=== PATIENT | female | born 1950 | race Caucasian/White ===

== ENCOUNTER 2019-12-07 12:57 | Emergency (ER) | payer OTHER, SELFPAY ==
--- NOTE | 2019-12-07 12:54 | ED.FALL ---
HPI - Fall General Chief Complaint: Fall Stated Complaint: Fall Time Seen by Provider: 12/07/19 13:00 Source: patient and EMS Mode of arrival: EMS Limitations: no limitations History of Present Illness HPI Narrative: This is a 69-year-old female who comes emergency department with complaint of right knee pain. Patient was [place] the beach at [facility]. Patient caught her toe on a sticker log and fell forward onto her knee. Patient has pain in the knee itself she denies injury or pain elsewhere. She does have some abrasions on her fingers. She denies hitting her head she denies neck or back pain. She denies any chest pain or shortness of breath. She has developed nausea and vomiting after receiving narcotic pain medication but did not have a prior to, patient received Zofran sublingual, IV as well as Benadryl for nausea and vomiting. No other GI or urinary symptoms. No numbness or tingling in her extremities. Patient denies any medical issues, states she does not take any medications regularly. She does not take any anticoagulants. She is allergic to penicillins. Denies tobacco, alcohol or illicit. She lives majority of the time in [place] but has a summer home on [facility]. She is in the area unaccompanied. Related Data Previous Rx's Medication Instructions Recorded tramadol [Ultram] 50 mg PO Q6H PRN #20 tab 12/07/19 Allergies Allergy/AdvReac Type Severity Reaction Status Date / Time Penicillins Allergy Verified 12/07/19 13:02 Review of Systems Review of Systems ROS Unobtainable: All systems reviewed & are unremarkable except as noted in HPI and below Patient History Social History Smoking Status: Never smoker Smoking Status: Never smoker Substance Use Type: does not use Exam Narrative Exam Narrative: GEN: Patient appears in home moderate distress. HEAD: No evidence of trauma, no raccoon/Coulter sign. NECK: Nontender, painless range of motion, trachea midline Negative Nexus criteria, there is no mid line tenderness, distracting injury, altered mental status, neuro deficit, recent EtOH. EYES: PERRLA, EOMI ENT: External inspection normal, trachea is midline, nares are clear, no septal hematoma, no dental or oral injury, airway is normal and with normal occlusion, No bony tenderness RESP: Chest is nontender and has symmetric movement, no ecchymosis, breath sounds are normal no crackles, wheezes or rales CVS: Heart sounds are normal, no murmur noted, No JVD. ABG/GI: Nontender, soft, normal bowel sounds, no distention, no organomegaly, pelvic rock is negative NEURO: Oriented AOx3, neuro is grossly intact, sensation and motor is normal all 4 extremities moving, cranial nerves II through XII are intact, GCS is 15 PSYCH: Normal mood and affect SKIN: Patient has several small abrasions on the dorsum of her fingers that are superficial, warm and dry, no crepitus and without decubitus BACK: No CVA tenderness, no vertebral tenderness, no step-off's, no crepitus EXT: Patient has swelling of the right knee, patient has tenderness over the knee. She has 2 abrasions on the top of the knee but they are superficial, hips are nontender, no pedal edema, normal color and temperature, normal range of motion of extremities with normal tendon exam, 2+ pulses in all four extremities Initial Vital Signs Initial Vital Signs: Vital Signs Temperature 96.7 F L 12/07/19 12:58 Pulse Rate 62 12/07/19 12:58 Respiratory Rate 18 12/07/19 12:58 Blood Pressure 188/75 H 12/07/19 12:58 Pulse Oximetry 99 12/07/19 12:58 Course Orders Ordered: ED Orders 12/07/19 13:01 XR knee RT 3V Stat 12/07/19 14:22 CT LE RT wo con Stat Discontinued Medications Tramadol HCl (Ultram) 100 mg PO NOW ONE Stop: 12/07/19 14:24 Last Admin: 12/07/19 14:59 Dose: 100 mg Documented by: RALF Vital Signs Vital signs: Vital Signs - 8 hr 12/07/19 12:58 12/07/19 15:21 Temperature 96.7 F L Pulse Rate 62 88 Respiratory Rate 18 18 Blood Pressure 188/75 H Blood Pressure [Left Arm] 175/74 H Pulse Oximetry 99 99 MDM - Fall Imaging Data right knee xray: Radiologist's Impression: [address] [address] XRay Report Signed Patient: Aileen VelazquezMR#: [id number] : 8Acct:[id number] Age/Sex: 69 / FDate of Service: 12/07/19 Loc: ED Accession Number: [id number] Procedure: XR knee RT 3V Ordering Provider: Daphne Moreno D.O. PROCEDURE: XR KNEE RT 3V INDICATIONS: rightk nee pain, s/p fall TECHNIQUE: 3 views of the knee were acquired. COMPARISON: None. FINDINGS: Bones: A nondisplaced and mildly complex fracture is identified involving the proximal tibial metaphysis. This fracture probably extends into the joint space at the location of the tibial spines. There is no dislocation or suspicious osseous lesion. No definite additional fractures are appreciated. Soft tissues: There likely is a joint effusion. No suspicious soft tissue calcifications. IMPRESSION: Nondisplaced probable intra-articular fracture of the proximal tibial metaphysis. Dictated by: Seth Troy M.D. on 12/07/2019 at 12:30 Approved by: Seth Troy M.D. on 12/07/2019 at 12:30 CT lower extremity: Radiologist's Impression: [place] [address] CT Scan Report Signed Patient: Aileen VelazquezMR#: [id number] : 8Acct:[id number] Age/Sex: 69 / FDate of Service: 12/07/19 Loc: ED Accession Number: [id number] Procedure: CT LE RT wo con Ordering Provider: Daphne Moreno D.O. PROCEDURE: CT LE RT WO CON INDICATIONS: right tibial facture TECHNIQUE: Noncontrast 1-1.5 mm axial sections acquired from the mid-patella to the proximal tibia, with coronal and sagittal reformats. COMPARISON: [facility], , XR KNEE RT 3V, 12/07/2019, 13:01. FINDINGS: Image quality: Diagnostic. Bones: Nondisplaced vertical oblique fractures are identified involving the proximal tibial metaphysis. There is a vertical oblique fracture extending from the lateral proximal tibial metaphysis to the level of the anterior tibial spine. An additional nondisplaced vertical oblique fracture line is identified extending from the medial proximal tibial cortex to the anterior tibial spine, as well. No articular surface offset is identified. No additional fractures are evident. No suspicious osseous lesions are present. There is no dislocation. Moderate degenerative changes of the knee are present. 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 Please note that the ligamentous, tendinous, and cartilaginous structures of the knee are not adequately evaluated on CT. No soft tissue masses are appreciated. No loculated fluid collection evident. No significant muscle atrophy is appreciated. IMPRESSION: 1. Complex fracture involving the medial and lateral margins of the proximal tibial metaphysis with intra-articular extension and involvement of the tibial spines. There is no articular surface offset. 2. 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 Dictated by: Seth Troy M.D. on 12/07/2019 at 14:54 Approved by: Seth Troy M.D. on 12/07/2019 at 15:02 [facility] Narrative Medical decision making narrative: Spoke with Dr. Hawley, imaging reviewed. Dr. Hawley saw patient in the department. Plan for knee immobilizer, xeroform over open wound. Patient had CT of lower extremity to help define if patient will need surgical repair. Patient defers any repair locally, she lives in [place]. Plan for nonweightbearing, patient received disc with images and they will follow-up with Orthopedic surgery through [facility] is there facility where they typically receives care. Asked them to contact their primary care 1st thing in the morning or [facility] directly to set up follow-up. CT findings reviewed. Patient has disk and tolerated tramadol in department without issue. Discharge Plan Departure Patient Disposition: Home Clinical Impression: Closed tibial fracture Qualifiers: Encounter type: initial encounter Tibia location: proximal Laterality: right Discharge Date/Time: 12/07/19 16:28 Instructions: DI for Tibial Plateau Fracture Activity Restrictions/Additional Instructions: Follow-up with Orthopedic surgery, call tomorrow morning for an appointment. You may try directly with [facility] or you may call your primary care and they may be able to refer you and set up for you as well. You will want to follow up in the next week. Take disk with images to your orthopedic appointment. You may take tylenol up to 1000mg every 8 hours as needed for pain. Take pain medication as prescribed this medication can make you sleepy do not drive, perform hazardous activities or make any major decisions while taking it. You are to be nonweightbearing until cleared by Orthopedic surgery. Splint Care: Keep a mobilizer clean and dry. Elevated affected body part to decrease swelling. OK to use ice pack on the affected body part. Use for 15-20 minutes each time, for 5-6x per day. If you develop worsening pain, numbness, tingling, discoloration of the affected body part, loosen the immobilized, and either see your doctor for an urgent re-assessment, or return to the Emergency Department. Return to the Emergency Department for any new or worsening symptoms. Prescriptions: New tramadol [Ultram] 50 mg tablet 50 mg PO Q6H PRN (Reason: pain) Qty: 20 RF: 0 Referrals: Liana Hawley MD [Physician] -
[2019-12-07 12:58] VITALS: BP 188/75; PULSE 62; RESP 18; TEMP 35.9; O2SAT 99; BMI 27.9
--- NOTE | 2019-12-07 13:01 | DI.RAD.S_ITS ---
PROCEDURE: XR KNEE RT 3V INDICATIONS: rightk nee pain, s/p fall TECHNIQUE: 3 views of the knee were acquired. COMPARISON: None. FINDINGS: Bones: A nondisplaced and mildly complex fracture is identified involving the proximal tibial metaphysis. This fracture probably extends into the joint space at the location of the tibial spines. There is no dislocation or suspicious osseous lesion. No definite additional fractures are appreciated. Soft tissues: There likely is a joint effusion. No suspicious soft tissue calcifications. IMPRESSION: Nondisplaced probable intra-articular fracture of the proximal tibial metaphysis. Dictated by: Seth Troy M.D. on 12/07/2019 at 12:30 Approved by: Seth Troy M.D. on 12/07/2019 at 12:30
--- NOTE | 2019-12-07 14:22 | DI.CT.S_ITS ---
PROCEDURE: CT LE RT WO CON INDICATIONS: right tibial facture TECHNIQUE: Noncontrast 1-1.5 mm axial sections acquired from the mid-patella to the proximal tibia, with coronal and sagittal reformats. COMPARISON: [facility], CR, XR KNEE RT 3V, 12/07/2019, 13:01. FINDINGS: Image quality: Diagnostic. Bones: Nondisplaced vertical oblique fractures are identified involving the proximal tibial metaphysis. There is a vertical oblique fracture extending from the lateral proximal tibial metaphysis to the level of the anterior tibial spine. An additional nondisplaced vertical oblique fracture line is identified extending from the medial proximal tibial cortex to the anterior tibial spine, as well. No articular surface offset is identified. No additional fractures are evident. No suspicious osseous lesions are present. There is no dislocation. Moderate degenerative changes of the knee are present. 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 Please note that the ligamentous, tendinous, and cartilaginous structures of the knee are not adequately evaluated on CT. No soft tissue masses are appreciated. No loculated fluid collection evident. No significant muscle atrophy is appreciated. IMPRESSION: 1. Complex fracture involving the medial and lateral margins of the proximal tibial metaphysis with intra-articular extension and involvement of the tibial spines. There is no articular surface offset. 2. 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 Dictated by: Seth Troy M.D. on 12/07/2019 at 14:54 Approved by: Seth Troy M.D. on 12/07/2019 at 15:02
[2019-12-07] MEDS: TRAMADOL 50 MG TABLET 100 MG PO (14:59)
[2019-12-07 15:21] VITALS: BP 175/74; PULSE 88; RESP 18; O2SAT 99
--- NOTE | 2019-12-07 20:54 | PM.HP.1 ---
History of Present Illness History of Present Illness Date Patient Seen: 12/07/19 Time Patient Seen: 15:56 Date of Onset of Symptoms: 12/07/19 Chief complaint: Fall Narrative: This is a pleasant 69-year-old female who lives in [place] and normally gets her care at [facility] who [place] [facility] [place] when she accidentally tripped over a large and landed directly on her right knee. She noted the acute onset of severe right knee pain. She has had no prior injuries to the right knee. She does not note significant numbness or tingling into the leg. Patient History Family & Social History Safety & Behavioral: Feels Safe in Current Yes Environment Been Physically Hurt or No Threatened By a Person Tobacco & Substance use: Smoking Status Never smoker Substance Use Type does not use Meds Home Medications and Allergies Home Medications Medication Instructions Recorded Confirmed Type tramadol [Ultram] 50 mg PO Q6H PRN #20 tab 12/07/19 Rx Allergies Allergy/AdvReac Type Severity Reaction Status Date / Time Penicillins Allergy Verified 12/07/19 13:02 Review of Systems Review of Systems Narrative: She denied chest pain dizziness or lightheadedness prior to the fall, she does not no significant numbness or tingling into the right lower extremity, her pain is adequately controlled, she has not had any recent respiratory problems, denies recent cough fever or chills Exam Vital Signs (past 8 hours): - 12/07/19 12:58 12/07/19 15:21 Temperature 96.7 F L Pulse Rate 62 88 Respiratory Rate 18 18 Blood Pressure 188/75 H Blood Pressure [Left Arm] 175/74 H Pulse Oximetry 99 99 Oxygen Delivery Method Room Air Narrative Exam Narrative: HEENT is benign she is alert she is oriented she is shaking just slightly, lungs are clear, cor regular rate and rhythm, abdomen soft and benign, the right lower extremity shows an abrasion in the prepatellar area and in the pretibial area superficial with minimal bleeding her compartments are soft in the right calf, she is able to fire toe flexors and extensors has no pain with gentle passive stretch she has a palpable dorsalis pedis and posterior tibial pulse and intact sensation Objective Labs Labs: Her x-rays AP and lateral show a comminuted but minimally displaced right proximal tibia fracture, her CT scan shows a comminuted bicondylar tibial plateau fracture with minimal displacement and acceptable overall alignment Assessment & Plan Assessment & Plan narrative: Impression is right closed comminuted but minimally displaced bicondylar tibial plateau fracture. Neurologically intact with no evidence of a compartment syndrome and soft compartments. The patient lives in [place] I told her that she likely can be managed conservatively with a brace and we provided her with a knee immobilizer today. She should be strict nonweightbearing on the right lower extremity. At a fairly extensive discussion with her and her about the fracture and concerns regarding healing and potential different options for treatment. She is going to follow up with [facility] and is planning to contact her primary care practitioner today with a tentative plan for follow-up on Monday. Asked the emergency room staff to provide her with a copy of her x-rays and the CT scan to take to [facility].
== END 2019-12-07 16:28 | disposition home or self-care (01) ==
PROVIDERS: Emergency Provider Emergency Medicine
DX: S82.141A Displaced bicondylar fracture of right tibia, initial encounter for closed fracture (principal); R11.2 Nausea with vomiting, unspecified; W19.XXXA Unspecified fall, initial encounter
CPT/HCPCS: 73562; 73700; 99284